=== PATIENT | female | born 1985 | race Two or more races ===

== ENCOUNTER 2021-12-09 14:13 | Emergency (ER) | payer OTHER | END 2021-12-09 19:15 | disposition home or self-care (01) | LOC: FER 14:13 | DX: S00.93XA Contusion of unspecified part of head, initial encounter (principal); Z28.310 Unvaccinated for COVID-19; W01.198A Fall on same level from slipping, tripping and stumbling with subsequent striking against other object, initial encounter; Y92.002 Bathroom of unspecified non-institutional (private) residence as the place of occurrence of the external cause | CPT/HCPCS: 70450; 72125 ==